=== PATIENT | male | born 1955 | race Caucasian/White ===

== ENCOUNTER 2023-09-24 05:37 | Emergency (ER) | payer BC, SELFPAY ==
--- NOTE | 2023-09-24 05:30 | RT.EKG_ITS ---
APPROVED REPORT Exam: Resting ECG Reason for Exam: abd pain Patient Location: E HR:71 bpm ECG Measurements Heart Rate 71 AXIS VT 154 P 46 QRSd 146 QRS 19 QT 446 T 40 QTc 485 Conclusion Sinus rhythm..V-rate 60- 99 Right bundle branch block...QRSd>120, terminal axis(90,270) No ST segment or T wave abnormalities to suggest occluisve [place]
[2023-09-24 05:37] VITALS: BP 129/84; PULSE 63; RESP 16; TEMP 36.2; O2SAT 96
--- NOTE | 2023-09-24 05:51 | ED.GENADUL_ITS ---
Discharge Plan Discharge Details Chief Complaint: FlankPain ED Provider: Bisi Kolb Home Meds and New Rx's Prescriptions: No Action Brilinta 60 mg tablet 60 mg PO BID metoprolol tartrate 25 mg tablet 12.5 mg PO DAILY atorvastatin 40 mg tablet 40 mg PO DAILY levothyroxine 75 mcg capsule 75 mcg PO DAILY aspirin [Aspirin Childrens] 81 mg tablet,chewable 81 mg PO DAILY omeprazole 20 mg capsule,delayed release(DR/EC) 20 mg PO DAILY cholecalciferol (vitamin D3) [Vitamin D3] 50 mcg (2,000 unit) tablet 50 mcg PO DAILY multivitamin [Daily Value] Tablet 1 tab PO DAILY acetaminophen 500 mg capsule 1,000 mg PO Q6H PRN loratadine [Claritin] 10 mg tablet 10 mg PO DAILY PRN HPI General Mode of arrival: EMS . Date/Time Provider Initiated Documentation: 09/24/23 05:43 . Limitations to Documentation: no limitations . Information obtained by: patient and EMS . HPI Narrative: 68yo M with hx CAD presenting for severe acute sharp right flank pain radiating into his groin. Woke him from sleep this morning, constant since onset. No alleviating factors, unable to get comfortable. Associated nausea and vomiting. Never experienced anything like this before. No abdominal pain. No dysuria. Several days ago had dark urine, has returned to normal since then. No testic ular pain, no penile discharge. He is otherwise in his usual state of health with no fevers, chills, rash, chest pain, shortness of breath, numbness, tingling, weakness, or other concerns. Related Data Home Medications Medication Instructions Recorded Confirmed acetaminophen 500 mg capsule 1,000 mg PO Q6H PRN 09/24/23 09/24/23 aspirin 81 mg chewable tablet 81 mg PO DAILY 09/24/23 09/24/23 (Aspirin Childrens) atorvastatin 40 mg tablet 40 mg PO DAILY 09/24/23 09/24/23 cholecalciferol (vitamin D3) 50 50 mcg PO DAILY 09/24/23 09/24/23 mcg (2,000 unit) tablet (Vitamin D3) levothyroxine 75 mcg capsule 75 mcg PO DAILY 09/24/23 09/24/23 loratadine 10 mg tablet (Claritin) 10 mg PO DAILY PRN 09/24/23 09/24/23 metoprolol tartrate 25 mg tablet 12.5 mg PO DAILY 09/24/23 09/24/23 multivitamin (Daily Value tablet) 1 tab PO DAILY 09/24/23 09/24/23 omeprazole 20 mg capsule,delayed 20 mg PO DAILY 09/24/23 09/24/23 release ticagrelor 60 mg tablet (Brilinta) 60 mg PO BID 09/24/23 09/24/23 Allergies Allergy/AdvReac Type Severity Reaction Status Date / Time No Known Allergies Allergy Unverified 09/24/23 05:57 General Stated Complaint: FlankPain SUMMER: 3 Review of Systems Narrative: see HPI Exam Narrative Exam Narrative: General: Alert, well appearing, appears to be in pain, clutching emesis bag Head: Normocephalic, atraumatic Neck: Trachea midline, ?Neck supple. ENT: ?MMM.? Cardiac: ?RRR, no murmurs appreciated Resp: No respiratory distress. CTAB. Abd: ?Soft, non-distended, nontender : ?No suprapubic tenderness. No CVA tenderness. Normal external genitalia. Testicles with normal lie, non-tender. Back: No paraspinal tenderness or spasm. No midline tenderness. Extremities: ?No deformities.? No peripheral edema. Neurologic: GCS 15. ? Moves all extremities freely against gravity Course Vital Signs Vital signs: Vital Signs Temperature 36.2 C L 09/24/23 05:37 Pulse 63 09/24/23 05:37 Respiratory Rate 16 09/24/23 05:37 Blood Pressure 129/84 09/24/23 05:37 Pulse Oximetry 96 09/24/23 05:37 Temperature 36.2 C L 09/24/23 05:37 Temperature Source Oral 09/24/23 05:37 Pulse 63 09/24/23 05:37 Respiratory Rate 16 09/24/23 05:37 Blood Pressure 129/84 09/24/23 05:37 Pulse Oximetry 96 09/24/23 05:37 Oxygen Delivery Method Room Air 09/24/23 05:37 Oxygen Flow Rate 0 09/24/23 05:37 Pain Level 9 09/24/23 05:37 Medical Decision Making 68yo M with hx CAD, hypothyroid, presenting for severe acute sharp right flank pain radiating into his groin which woke him from sleep this morning, associated nausea and vomiting. Vital signs reassuring on arrival, appears to be in pain on exam. Physical exam otherwise benign; no abdominal, testicular, or CVA tenderness. Would not get testicular ultrasound. Low suspicion for appendicitis or surgical intrabdominal process. Symptom control with tylenol/toradol/morphine/zofran. EKG on arrival sinus, RBBB (no priors available for comparison), no ST segment or T wave abnormalities to suggest occlusive [place]. Labs reviewed as below, CBC reassuring with no anemia or leukocytosis, CMP with no actionable abnormalities (borderline elevated ALP of unclear significance, patient with low flank/groin pain and s/p dede). On reassessment patient reports feeling improved, pain tolerable. Strongly suspect nephroliathiasis; MSK back pain also possible. Signed out to onccallie arias, awaiting UA and CT. Disposition pending results and reassessment. Imaging Data Radiologic Study: Imaging: CT Scan Lab Data Lab results reviewed: Yes I reviewed the patient's lab results. Labs: Laboratory Tests Range/Units 09/24/23 05:55 WBC (4.4-10.8) 10^3/uL 9.47 RBC (4.36-5.78) 10^6/uL 4.77 Hgb (13.5-17.5) g/dL 15.1 Hct (40.0-50.0) % 44.1 MCV (80-95) fL 93 MCH (27.0-33.0) pg 31.7 MCHC (32.0-36.0) % 34.2 RDW (11.8-14.1) % 12.7 Plt Count (130-400) 10^3/uL 240 MPV (8.0-11.0) fL 10.0 Immature Gran % 0.2 Neutrophils % 66.3 Lymphocytes % 23.9 Monocytes % 7.0 Eosinophils % 2.1 Basophils % 0.5 Nucleated RBC % (0.0-0.3) % 0.0 Absolute Neutrophils (1.2-6.7) 10^3/uL 6.28 Absolute Lymphocytes (1.2-3.4) 10^3/uL 2.26 Absolute Monocytes (0.1-0.8) 10^3/uL 0.66 Absolute Eosinophils (0.0-0.7) 10^3/uL 0.20 Absolute Basophils (0.0-0.2) 10^3/uL 0.05 Sodium (136-145) mmol/L 142 Potassium (3.5-5.1) mmol/L 3.4 L Chloride (98-107) mmol/L 104 Carbon Dioxide (21.0-32.0) mmol/L 26.3 Anion Gap (3-11) mmol/L 11.7 H BUN (7-18) mg/dL 15 Creatinine (0.70-1.30) mg/dL 1.2 Est GFR (CKD-EPI 2020) (mL/min/1.73m2) 65.87 Glucose (74-106) mg/dL 131 H Calcium (8.5-10.1) mg/dL 9.0 Total Bilirubin (0.2-1.0) mg/dL 0.5 AST (15-37) U/L 10 L ALT (16-63) U/L 15 L Alkaline Phosphatase (46-116) U/L 124 H Total Protein (6.4-8.2) g/dL 7.4 Albumin (3.4-5.0) g/dL 3.7 Quality:[facility] Health Related Social Needs: No Data to Display PFSH Social History Smoking/Tobacco Use Status: Former Tobacco Use Smoking risk assessment performed?: Yes Alcohol Intake: never Drug use: Never Substance use type: does not use
[2023-09-24] MEDS: Ondansetron 4 MG/2 ML VIAL (05:52)
[2023-09-24] MEDS: MORPHine 4 MG/ML SYR IVP (05:53)
[2023-09-24] MEDS: Ketorolac 15 MG/ML VIAL IM (05:53)
[2023-09-24 05:55] VITALS: BP 129/84; PULSE 63; RESP 16; TEMP 36.2; O2SAT 96
--- NOTE | 2023-09-24 05:55 | NUR.NOTE ---
Patient was vomiting so needed to wait a few moments in order to do his EKG.
[2023-09-24 05:58] LABS: Abs Immature Grans 0.02 10^3/uL (0.0-0.06); Absolute Basophil Count 0.05 10^3/uL (0.0-0.2); Absolute Lymphocyte Count 2.26 10^3/uL (1.2-3.4); Absolute Monocyte Count 0.66 10^3/uL (0.1-0.8); Absolute Neutrophil Count 6.28 10^3/uL (1.2-6.7); Basophils % 0.5; Eosinophils % 2.1; HCT 44.1 % (40.0-50.0); HGB 15.1 g/dL (13.5-17.5); Immature Grans % 0.2; Lymphocytes % 23.9; MCH 31.7 pg (27.0-33.0); MCHC 34.2 % (32.0-36.0); MCV 93 fL (80-95); Neutrophils % 66.3; Platelet Count 240 10^3/uL (130-400); RBC 4.77 10^6/uL (4.36-5.78); RDW 12.7 % (11.8-14.1); RDW-SD 43.1 fL; WBC 9.47 10^3/uL (4.4-10.8)
[2023-09-24] MEDS: Normal Saline 1,000 ML 1000 ML IV (06:11)
[2023-09-24 06:17] LABS: ALT 15 U/L (16-63); AST 10 U/L (15-37); Albumin 3.7 g/dL (3.4-5.0); Alkaline Phosphatase 124 U/L (46-116); Anion Gap 11.7 mmol/L (3-11); BUN 15 mg/dL (7-18); Bilirubin, Total 0.5 mg/dL (0.2-1.0); CO2 26.3 mmol/L (21.0-32.0); CREATININE 1.2 mg/dL (0.70-1.30); Chloride 104 mmol/L (98-107); Estimated GFR 65.87 (mL/min/1.73m2); Glucose 131 mg/dL (74-106); Potassium 3.4 mmol/L (3.5-5.1); Sodium 142 mmol/L (136-145); Total Protein 7.4 g/dL (6.4-8.2)
--- NOTE | 2023-09-24 06:33 | DI.CT_ITS ---
Exam(s) CT RENAL COLIC WO EXAM: CT RENAL COLIC WO CLINICAL HISTORY: severe right flank pain radiating into groin. TECHNIQUE: Imaging Protocol: Axial computed tomography images with coronal and sagittal reformatted images were created and reviewed. COMPARISON: No exams were available for comparison FINDINGS: ABDOMEN: Lung Bases: Coronary artery calcification and/or stent is present. Liver: Normal density. No measurable mass. Gallbladder and biliary tract: Status post cholecystectomy. The common duct measures 1.0 cm. This m ay be secondary to the reservoir effect following cholecystectomy. Pancreas: Normal density, no abnormal calcifications or inflammatory process. Spleen: Normal. Kidneys: Normal size, contour and axis.There is a 2 mm nonobstructed calculus in the midpole of the r ight kidney (series 5, image 267). There is minimal dilatation of the proximal right ureter. There is mild inflammatory stranding seen around the proximal ureter. There are bilateral renal cysts. Th e largest is on the right kidney and measures 3.4 x 3.2 cm. No follow-up is recommended. Adrenal glands: No mass is seen. Lymph nodes: Within normal limits. Abdominal Aorta: Abdominal portion non-dilated. Mild atherosclerotic calcification. PELVIS: Bladder:There is mild concentric thickening of the wall of the urinary bladder. Bowel: There is diverticulosis of the colon without evidence of acute diverticulitis. No evidence of bowel obstruction or bowel wall thickening. Appendix is unremarkable. Peritoneal cavity: No ascites, collection or mesenteric inflammatory response. No free air. Reproductive organs: The prostate gland is enlarged. Bones: Within normal limits. Soft Tissues: Within normal limits. IMPRESSION: 1. Mild stranding seen around the proximal right ureter. Very minimal dilatation of the proximal ure ter. No radiopaque stone is seen. Differential considerations include non radiopaque calculus causi ng obstruction, recently passed stone or infection. Please correlate clinically. 2. Right nephrolithiasis. 3. Urinary bladder wall thickening which may be due to underdistention or chronic bladder outlet obst ruction. 4. Enlarged prostate gland. RADIATION DOSE DELIVERED: Total DLP DATA REPOSITORY: All CT scans at this facility are submitted to the National Radiology Data Registry (NRDR) Dose Index Registry (DIR) with the [employer] (A[employer]). RADIATION OPTIMIZATION: All CT scans at this facility use at least one of these dose optimization te chniques: automated exposure control; mA and/or kV adjustment per patient size (includes targeted exa ms where dose is matched to clinical indication); or iterative reconstruction.
[2023-09-24] MEDS: Acetaminophen 500 MG TAB 1000 MG PO (06:42)
--- NOTE | 2023-09-24 06:43 | NUR.NOTE ---
Pt states still unable to urinate, FPJ
[2023-09-24 07:39] LABS: Bilirubin Negative (Negative); Blood Moderate (Negative); Clarity Clear (Clear); Glucose Negative (Negative); Ketones Trace mg/dL (Negative); Leukocyte Esterase Negative (Negative); Nitrite Negative (Negative); Specific Gravity 1.025 (1.005-1.025); Urobilinogen 0.2 mg/dL (Up to 0.2); pH 5.5 (5-8)
[2023-09-24 07:47] LABS: Bacteria Negative HPF (Negative); C & S Indicated? No; Casts 0-2 Hyaline LPF (Negative); Crystals Negative HPF (Negative); Epithelial Cells Rare HPF (Negative); Mucus Moderate (Negative); RBC 20-50 HPF (0-2); WBC Negative HPF (0-5)
--- NOTE | 2023-09-24 08:47 | DI.VRAD_ITS ---
PROCEDURE INFORMATION: Exam: CT Abdomen And Pelvis Without Contrast Exam date and time: 09/24/2023 6:25 AM Age: 68 years old Clinical indication: Abdominal pain; Patient HX: Severe right flank pain radiating into groin TECHNIQUE: Imaging protocol: Computed tomography of the abdomen and pelvis without contrast. Radiation optimization: All CT scans at this facility use at least one of these dose optimization techniques: automated exposure control; mA and/or kV adjustment per patient size (includes targeted exams where dose is matched to clinical indication); or iterative reconstruction. COMPARISON: No relevant prior studies available. FINDINGS: Limitations: No contrast was administered, limiting evaluation for some pathologies. Coronary arteries: Coronary artery calcifications. Liver: No focal hepatic lesion identified, within the limitations of a noncontrast examination. Gallbladder and bile ducts: Cholecystectomy with biliary ductal dilatation. Pancreas: No CT evidence for acute pancreatitis. Spleen: No splenomegaly. Adrenal glands: No mass. Kidneys and ureters: Bilateral renal cysts. Punctate nonobstructing right renal calculus. Right periureteral stranding. No radiopaque ureteral or bladder calculi are identified. There is no hydronephrosis. Stomach and bowel: No intestinal obstruction is evident. Retained fecal material is present in the colon. Colonic diverticula. Appendix: No evidence of appendicitis. Intraperitoneal space: No free air. Vasculature: Arterial calcifications. Lymph nodes: No acute findings. Urinary bladder: The urinary bladder appears mildly thickened but is incompletely distended. No bladder calculi seen. Reproductive: Enlarged prostate indenting the posterior bladder. Bones/joints: No pertinent acute abnormality seen. Soft tissues: No pertinent acute abnormality seen. IMPRESSION: 1. No obstructive uropathy. 2. Right periureteral stranding, may reflect recent stone passage or infection. Please correlate clinically. 3. Nonacute findings as outlined above. Dictated and Authenticated by: Zaida Page MD. Ordering:EVANGELINA Mathews MD
--- NOTE | 2023-09-24 09:12 | ED.PROG_ITS ---
Date of service: 09/24/23 Time of Service: 08:10 Medical Decision Making Patient signed out to me pending CT imaging report. High suspicion of kidney stone with symptoms. Please see previous documentation for physical exam, workup, and interventions. Reviewed CT imaging along with radiologist interpretation that does show signs of a passed kidney stone versus infection but given the circumstance and urinalysis not showing infection I do feel this is more of a passed kidney stone. Reassessed patient and patient does state improvement in overall discomfort and states no new or significant worsening of symptoms. I do feel that patient can be appropriately discharged and recommended acetaminophen and i buprofen as needed, significant hydration, and following up with primary care provider if not fully improving or returning for new or worsening of condition. After discussion of diagnosis and plan of care patient has no further needs, questions, or concerns and states clear understanding to return to the emergency department for any worsening symptoms. This documentation was generated using [employer] dictation system, please disregard any oddities of phrase or misspellings. Imaging Data Radiologic Study: Imaging: CT Scan Radiologist's impression: Exam(s) PROCEDURE INFORMATION: Exam: CT Abdomen And Pelvis Without Contrast Exam date and time: 09/24/2023 6:25 AM Age: 68 years old Clinical indication: Abdominal pain; Patient HX: Severe right flank pain radiating into groin TECHNIQUE: Imaging protocol: Computed tomography of the abdomen and pelvis without contrast. Radiation optimization: All CT scans at this facility use at least one of these dose optimization techniques: automated exposure control; mA and/or kV adjustment per patient size (includes targeted exams where dose is matched to clinical indication); or iterative reconstruction. COMPARISON: No relevant prior studies available. FINDINGS: Limitations: No contrast was administered, limiting evaluation for some pathologies. Coronary arteries: Coronary artery calcifications. Liver: No focal hepatic lesion identified, within the limitations of a noncontrast examination. Gallbladder and bile ducts: Cholecystectomy with biliary ductal dilatation. Pancreas: No CT evidence for acute pancreatitis. Spleen: No splenomegaly. Adrenal glands: No mass. Kidneys and ureters: Bilateral renal cysts. Punctate nonobstructing right renal calculus. Right periureteral stranding. No radiopaque ureteral or bladder calculi are identified. There is no hydronephrosis. Stomach and bowel: No intestinal obstruction is evident. Retained fecal material is present in the colon. Colonic diverticula. Appendix: No evidence of appendicitis. Intraperitoneal space: No free air. Vasculature: Arterial calcifications. Lymph nodes: No acute findings. Urinary bladder: The urinary bladder appears mildly thickened but is incompletely distended. No bladder calculi seen. Reproductive: Enlarged prostate indenting the posterior bladder. Bones/joints: No pertinent acute abnormality seen. Soft tissues: No pertinent acute abnormality seen. IMPRESSION: 1. No obstructive uropathy. 2. Right periureteral stranding, may reflect recent stone passage or infection. Please correlate clinically. 3. Nonacute findings as outlined above. Dictated and Authenticated by: Zaida Page MD. Lab Data Lab results reviewed: Yes I reviewed the patient's lab results. Quality:[facility] Health Related Social Needs: No Data to Display Exam Const General: cooperative, no acute distress and not ill appearing Orientation: alert, awake and oriented x3 HENMT Mouth: moist mucous membranes Resp Effort & Inspection: normal respiratory effort, able to speak in complete sentences and no respiratory distress Neuro General: patient alert, patient awake, patient oriented x3 and moves all extremities Sign Out Sign Out Data: Sign Out Comment: 68M severe acute right flank pain radiating into groin. Strongly suspect kidney stone. Pain improved after tylenol/toradol/morphine/zofran. CT & UA pending. Last updated by Bisi Kolb MD at 09/24/23 07:05 Discharge Plan Disposition Patient Disposition: Home Discharge Details Clinical Impression: Kidney stone on right side [facility] Dieudonne Vare[facility] Home Meds and New Rx's Prescriptions: Continued Brilinta 60 mg tablet 60 mg PO BID metoprolol tartrate 25 mg tablet 12.5 mg PO DAILY atorvastatin 40 mg tablet 40 mg PO DAILY levothyroxine 75 mcg capsule 75 mcg PO DAILY aspirin [Aspirin Childrens] 81 mg tablet,chewable 81 mg PO DAILY omeprazole 20 mg capsule,delayed release(DR/EC) 20 mg PO DAILY cholecalciferol (vitamin D3) [Vitamin D3] 50 mcg (2,000 unit) tablet 50 mcg PO DAILY multivitamin [Daily Value] Tablet 1 tab PO DAILY acetaminophen 500 mg capsule 1,000 mg PO Q6H PRN loratadine [Claritin] 10 mg tablet 10 mg PO DAILY PRN Discharge Instructions Instructions: Kidney Stones (ED) Additional Instructions: Your workup today is highly suspicious for a kidney stone that you have already passed. There is no necessary follow-up as long as you continue to recover. As discussed please continue to stay well-hydrated and you may use [id number] pain medication as discussed. If you have any new or significant worsening of your symptoms please return immediately to the emergency department for reassessment. Stand Alone Forms: Work Release Referrals: Primary Care Provider [Outside] Discharge Data Discharge Date/Time-TO BE ENTERED AT DEPARTURE: 09/24/23 09:37
[2023-09-24 09:19] VITALS: BP 140/104; PULSE 71; RESP 18; TEMP 36.8; O2SAT 96
== END 2023-09-24 09:37 | disposition home or self-care (01) ==
PROVIDERS: Student in an Organized Health Care Education/Training Program; Emergency Provider Nurse Practitioner Family
DX: N20.0 Calculus of kidney; R10.9 Unspecified abdominal pain; N28.1 Cyst of kidney, acquired; I25.10 Atherosclerotic heart disease of native coronary artery without angina pectoris; Z79.82 Long term (current) use of aspirin; Z79.899 Other long term (current) drug therapy
CPT/HCPCS: 00123; 36415; 80053; 93005; 96361; 96372; 96374; 99284; 74176; 81003; 81015; 85025; 93010; 99285; J1885; J2270; J2405